=== PATIENT | female | born 1960 | race Caucasian/White ===

== ENCOUNTER 2020-02-02 19:57 | Emergency (ER) | payer OTHER ==
--- NOTE | 2020-02-02 20:20 | ER Document Report ---
ED Medical Screen (RME) - General Chief Complaint: Arm Injury Stated Complaint: LEFT FOREARM SWELLING Time Seen by Provider: 02/02/20 20:15 Mode of Arrival: Ambulatory Information source: Patient Notes: Patient presents complaining of left forearm tenderness and swelling that started around 730 this evening. Patient denies any injury. Patient states that she does bruise very easily. I have greeted and performed a rapid initial assessment of this patient. A comprehensive ED assessment and evaluation of the patient, analysis of test results and completion of the medical decision making process will be conducted by additional ED providers. - Related Data Allergies/Adverse Reactions: Sulfa (Sulfonamide Antibiotics) Allergy (Verified 02/02/20 20:17) Past Medical History - Social History Frequency of alcohol use: None Drug Abuse: None Physical Exam - Vital signs Vitals: Temp Pulse Resp BP Pulse Ox 98.2 F 79 19 157/85 H 100 02/02/20 20:07 02/02/20 20:07 02/02/20 20:07 02/02/20 20:07 02/02/20 20:07 - General General appearance: Alert Notes: Patient with area of swelling and discoloration that looks worrisome for developing hematoma, 2+ radial pulse Course - Vital Signs Vital signs: Temp Pulse Resp BP Pulse Ox 98.2 F 79 19 157/85 H 100 02/02/20 20:07 02/02/20 20:07 02/02/20 20:07 02/02/20 20:07 02/02/20 20:07
[2020-02-02 20:56] LABS: ABSOLUTE BASOPHILS # (AUTO) 0.1 10^3/uL (0.0-0.2); ABSOLUTE EOSINOPHILS # (AUTO) 0.1 10^3/uL (0.0-0.6); ABSOLUTE LYMPHOCYTES (AUTO) 1.7 10^3/uL (0.5-4.7); ABSOLUTE MONOCYTES (AUTO) 0.7 10^3/uL (0.1-1.4); ABSOLUTE NEUT (AUTO) 4.6 10^3/uL (1.7-8.2); EOSINOPHILS % (AUTO) 1.7 % (0-6); HEMATOCRIT 34.3 % (36.0-47.0); HEMOGLOBIN 11.7 g/dL (12.0-15.5); LYMPHOCYTES % (AUTO) 23.8 % (13-45); MEAN CORPUSCULAR HEMOGLOBIN 29.2 pg (27.0-33.4); MEAN CORPUSCULAR HGB CONC 34.1 g/dL (32.0-36.0); MEAN CORPUSCULAR VOLUME 86 fl (80-97); MONOCYTES % (AUTO) 9.5 % (3-13); PLATELET COUNT 351 10^3/uL (150-450); RED BLOOD COUNT 3.99 10^6/uL (3.72-5.28); RED CELL DISTRIBUTION WIDTH 14.5 % (11.5-14.0); TOTAL CELLS COUNTED % (AUTO) 100 %; WHITE BLOOD COUNT 7.2 10^3/uL (4.0-10.5)
[2020-02-02 21:00] LABS: INTERNATIONAL RATION (INR) 0.97; PROTHROMBIN TIME 12.9 SEC (11.4-15.4)
[2020-02-02 21:01] LABS: PARTIAL THROMBOPLASTIN TIME 26.3 SEC (23.5-35.8)
[2020-02-02 21:11] LABS: ALBUMIN 4.2 g/dL (3.5-5.0); ALKALINE PHOSPHATASE 93 U/L (38-126); ANION GAP 7 (5-19); ASPARTATE AMINO TRANSFERASE 23 U/L (14-36); BILIRUBIN,DIRECT 0.2 mg/dL (0.0-0.4); BILIRUBIN,TOTAL 0.5 mg/dL (0.2-1.3); BLOOD UREA NITROGEN 29 mg/dL (7-20); CALCIUM 9.8 mg/dL (8.4-10.2); CARBON DIOXIDE 28 mmol/L (22-30); CHLORIDE 99 mmol/L (98-107); GLUCOSE 109 mg/dL (75-110); POTASSIUM 4.7 mmol/L (3.6-5.0); TOTAL PROTEIN 7.1 g/dL (6.3-8.2)
--- NOTE | 2020-02-02 22:18 | ER Document Report ---
Entered by JULIO TOLBERT SCRIBE 02/02/20 2212 Acting as scribe for:ROSA VALENCIA, DO ED Extremity Problem, Upper - General Chief Complaint: Arm Injury Stated Complaint: LEFT FOREARM SWELLING Time Seen by Provider: 02/02/20 20:15 Mode of Arrival: Ambulatory Information source: Patient Notes: This 60 year old female patient presents to the ED today with complaints of pain and swelling to her left forearm. Patient states that she noticed the area while at work around 1930 this evening. She describes the pain as dull and burning in nature and admits to bruising easily. No insect bite or injury. She reports that she recently finished x2 courses of Prednisone related to a rash. Denies chest pain or shortness of breath. - Related Data Allergies/Adverse Reactions: Sulfa (Sulfonamide Antibiotics) Allergy (Verified 02/02/20 20:17) Past Medical History - General Information source: Patient - Social History Smoking Status: Never Smoker Cigarette use (# per day): No Chew tobacco use (# tins/day): No Smoking Education Provided: No Frequency of alcohol use: None Drug Abuse: None Lives with: Spouse/Significant other Family History: Reviewed & Not Pertinent Patient has suicidal ideation: No Patient has homicidal ideation: No - Past Medical History Cardiac Medical History: Reports: Hx Hypertension GI Medical History: Reports: Hx Gastroesophageal Reflux Disease Review of Systems - Review of Systems Constitutional: No symptoms reported EENT: No symptoms reported Cardiovascular: See HPI, Chest pain Respiratory: See HPI. denies: Short of breath Gastrointestinal: No symptoms reported Genitourinary: No symptoms reported Female Genitourinary: No symptoms reported Musculoskeletal: See HPI, Other - Left forearm pain and swelling Skin: No symptoms reported Hematologic/Lymphatic: See HPI, Easy bruising Neurological/Psychological: No symptoms reported Physical Exam - Vital signs Vitals: Temp Pulse Resp BP Pulse Ox 98.2 F 79 19 157/85 H 100 02/02/20 20:07 02/02/20 20:07 02/02/20 20:07 02/02/20 20:07 02/02/20 20:07 - General General appearance: Appears well, Alert In distress: None - HEENT Head: Normocephalic, Atraumatic Eyes: Normal Pupils: PERRL - Respiratory Respiratory status: No respiratory distress Chest status: Nontender Breath sounds: Normal Chest palpation: Normal - Cardiovascular Rhythm: Regular Heart sounds: Normal auscultation Murmur: No Friction rub: No Gallop: None auscultated - Abdominal Inspection: Normal Distension: No distension Bowel sounds: Normal Tenderness: Nontender - Abdomen soft Organomegaly: No organomegaly - Back Back: Normal, Nontender - Extremities General lower extremity: Normal inspection. No: Edema Forearm: Other - 12 cm x 6 cm area that is mildly swollen and tender to palpation, appearance which is consistent with a hematoma - Neurological Neuro grossly intact: Yes Orientation: AAOx4 [place] Coma Scale Eye Opening: Spontaneous [place] Coma Scale Verbal: Oriented [place] Coma Scale Motor: Obeys Commands Pop Coma Scale Total: 15 - Psychological Associated symptoms: Normal affect, Normal mood - Skin Skin Temperature: Warm Skin Moisture: Dry Skin Color: Normal Course - Re-evaluation Re-evalutation: 02/02/20 22:21 MDM 60 year old with left forearm sts that developed spontaneously a short time ago with no injury. Right handed. She reports it is painful and that the swelling concerned her. Hematoma is noted with mild sts wrist and hand are w ithout sts and have normal motion and cap refill. Perhaps her prednisone dosing - 2 tapering packs recently for rash - is responsible. She does have a primary care doctor in [place] that she is due to follow up later this week with. - Vital Signs Vital signs: Temp Pulse Resp BP Pulse Ox 98.6 F 79 18 138/72 H 96 02/02/20 23:04 02/02/20 23:04 02/02/20 23:04 02/02/20 23:04 02/02/20 23:04 - Laboratory Result Diagrams: 02/02/20 20:42 02/02/20 20:42 Laboratory results interpreted by me: 02/02/20 02/02/20 20:42 20:42 Hgb 11.7 L Hct 34.3 L RDW 14.5 H Sodium 133.7 L BUN 29 H Est GFR ( Amer) 56 L Est GFR (MDRD) Non-Af 46 L Discharge - Discharge Clinical Impression: Hematoma Condition: Stable Disposition: HOME, SELF-CARE Instructions: Family Physicians / Practices, Hematoma ([facility]) Additional Instructions: See your doctor in [place] in follow. Ice and elevate the arm and you may alternate ice and heat. Return here for increased pain, swelling or other problems or other concerns. Forms: Elevated Blood Pressure I personally performed the services described in the documentation, reviewed and edited the documentation which was dictated to the scribe in my presence, and it accurately records my words and actions.
[2020-02-02 23:06] VITALS: BP 138/72
== END 2020-02-02 23:06 | disposition home or self-care (01) ==
LOC: ER 19:57
DX: S50.12XA Contusion of left forearm, initial encounter (principal); M79.89 Other specified soft tissue disorders; M79.632 Pain in left forearm; X58.XXXA Exposure to other specified factors, initial encounter; I10 Essential (primary) hypertension
CPT/HCPCS: 36415; 80053; 85025; 85610; 85730; 99283